=== PATIENT | female | born 1935 | race Caucasian/White ===

== ENCOUNTER 2016-10-28 12:15 | Inpatient (IN) | payer MEDICARE, OTHER ==
--- NOTE | ~2016-10-28 | CR72 ---
[facility] A Service of [facility] RADIOLOGY TEXT RESULTS PATIENT: BARBARA JAIME LOCATION: [facility] : 35 UNIT #: [id number] AGE: [address]: Alivia Johnston MD SEX: F ORDER DR: [id number] [facility] [address]. [place], [place] [address] [id number] I MR#: [id number] Acc #: [id number] NAME: BARBARA JAIME. : 1935 SEX: F STUDY DATE/TIME: 11/01/2016 11:19 UNIT: [address] ROOM: [facility] STUDY DESCRIPTION: CR Chest Single View Portable Attending Physician: Alivia Johnston M.D. Ordering Physician: Alivia Johnston M.D. Primary Care Physician: Kassy Aguayo M.D. MEDICAL IMAGING REPORT This report is preliminary unless electronic signature is present EXAM Portable chest x-ray 11/01/2016 HISTORY Short of air. TECHNIQUE Left anterior-oblique radiograph of the chest is presented. COMPARISON 10/29/2016 FINDINGS The right side chest port unchanged. Status post endovascular aortic valve repair. Heart normal in size. Evidence of prior coronary arterial stenting. The left lung is well-inflated without evidence of acute pulmonary disease. Small right pleural effusion decreased in volume from prior study. Right lung shows improved volume. There continues to be obscuration of a portion of the right lung base. Right hilar prominence stable compared to prior study. No pneumothorax. Dictated by... Benoit Farmer M.D. THIS IS AN ELECTRONICALLY VERIFIED REPORT Benoit Farmer M.D. at 11/02/2016 10:29 AM HANG/shaq TD: 11/01/2016 13:30 JOB #: [id number] MEDICAL IMAGING REPORT [facility] A Service of [facility] RADIOLOGY TEXT RESULTS PATIENT: BARBARA JAIME LOCATION: [facility] : 35 UNIT #: [id number] AGE: [address]: Alivia Johnston MD SEX: F ORDER DR: Page 1 of 1 COPY
--- NOTE | ~2016-10-28 | HP ---
Unit #: [id number] #: [id number] Patient: BARBARA JAIME [id number] [address] [place], [place] [address] [id number] I MR#: [id number] NAME: BARBARA JAIME. ROOM: 302 Age: 81 Sex: F Admission Date: 10/28/2016 : 1935 Attending Physician: Alivia Johnston M.D. Primary Care Physician: Kassy Aguayo M.D. HISTORY AND PHYSICAL CHIEF COMPLAINT Shortness of breath. HISTORY OF PRESENT ILLNESS Patient presented to the oncology office with complaint of fatigue, shortness of breath, and was found to be severely anemic in the office with a hemoglobin of 6.7, transferred to our facility for further management. I am seeing her at the bedside. She has a history of lung cancer, undergoing chemotherapy, history of COPD and malignant pleural effusion. She has been also complaining of hemorrhoids and bleeding from the hemorrhoids off and on and complaining of cough, shortness of breath. PHYSICAL EXAMINATION VITAL SIGNS: Temperature 98. Pulse 87. Respiration 12. Blood pressure 130/70. NEUROLOGICAL: Awake, alert and oriented. No neuro deficit. HEENT: PERRLA, EOMI. NECK: Supple. No JVD. CHEST: Bilateral air entry. Bilateral mild rhonchi. GI: Nontender, soft, bowel sounds positive. EXTREMITIES: No edema. DIAGNOSTIC STUDIES LABORATORY: Labs pending. IMAGING: Pending. PAST MEDICAL HISTORY COPD, respiratory failure, small cell lung cancer, depression, spinal stenosis, neuropathy, dysphagia, corneal transplant, tonsillectomy. ALLERGIES Zocor, Demerol, Levaquin, Biaxin. MEDICATION Medication as per SEP has been reviewed. ASSESSMENT 1. Severe anemia. 2. Pancytopenia. 3. Immunocompromised patient. 4. Fever. Unit #: [id number] #: [id number] Patient: BARBARA JAIME PLAN At this point plan is to draw two sets of blood culture, IV antibiotic, transfuse blood and will also consult [facility] for evaluation of her hemorrhoids and continue home medication, GI and DVT prophylaxis, broad spectrum IV antibiotic, consult Oncology. Patient will be closely monitored. Dictated by Bry Hernandez/meghana TD: 10/28/2016 22:30 JOB #: [id number] HISTORY AND PHYSICAL Page 1 of 1 X Alivia Johnston MD HISTORY AND PHYSICAL
--- NOTE | ~2016-10-28 | CO ---
Unit #: [id number] #: [id number] Patient: BARBARA JAIME [id number] [facility]. [place], [place] [address] [id number] I MR#: [id number] NAME: BARBARA JAIME. ROOM: 302 Age: 81 Sex: F Admission Date: 10/28/2016 : 1935 Attending Physician: Alivia Johnston M.D. Primary Care Physician: Kassy Aguayo M.D. Consultation Date: 11/01/2016 CONSULTATION REPORT REASON FOR CONSULTATION Nonsustained ventricular tachycardia. HISTORY OF PRESENT ILLNESS This is an 81-year-old white female, previously known to Dr. Manrique, with a past medical history of severe aortic stenosis, status post TAVR on 07/22/2016. The patient is known to have chronic respiratory failure and is on home oxygen due to COPD. She also has a history of lung cancer and is currently undergoing chemotherapy. Her last treatment was last . Additional past medical history includes hypertension, hypothyroidism, anxiety, and chronic anemia. 2D echocardiogram was completed on 08/31/2016, which revealed an ejection fraction of 70% with a trivial anterior pericardial effusion. The patient underwent a cardiac catheterization prior to the TAVR procedure on 07/07/2016 and was found to have single-vessel disease in the right coronary artery. She underwent PCI and drug-eluting stent in the proximal right coronary artery. Despite her significant medical conditions, she continues to smoke cigarettes. She presented to the hospital on 10/28/2016 with anemia and shortness of breath. She was admitted for further observation and LSA and Hematology were consulted. She was treated for acute respiratory failure and suspected pneumonia. Her platelet count has been low [place] from [address] to [address]. Her hemoglobin is currently at 8.9. She underwent an EGD, which revealed diverticulosis and benign polyp in the transverse colon. She was going to be discharged home today, but had a 7-beat run of nonsustained ventricular tachycardia. Baseline telemetry also reveals sinus tachycardia with rates in the 100s to 130s. Cardiology was consulted for further management. The patient denies chest pain. She has had some chronic shortness of breath, which is improving. There are no reports of palpitations, PND, orthopnea, or lower extremity edema. She denies dizziness or syncope. Potassium is 3.8. Magnesium is mildly low at 1.7. The patient is resting comfortably and is adamant about being discharged home this afternoon. PAST MEDICAL HISTORY 1. Severe aortic stenosis, status post TAVR on 07/22/2016. 2. Single-vessel coronary artery disease, status post PCI and drug-eluting stent in the proximal right coronary artery on 07/07/2016. 3. 2D echocardiogram on 08/31/2016 revealed mild LVH. Ejection fraction 70%. Trivial anterior pericardial effusion. 4. Chronic respiratory failure on home oxygen. 5. COPD. 6. Lung cancer, currently undergoing chemotherapy. 7. Hypertension. Unit #: [id number] #: [id number] Patient: BARBARA JAIME 8. Hypothyroidism. 9. Anxiety. 10. Chronic anemia. 11. Documented allergy to statin. 12. Active tobacco abuse. PAST SURGICAL HISTORY 1. Cardiac catheterization. 2. TAVR. HOME MEDICATIONS Dexamethasone 4 mg p.o. daily, Dermacort 1 g topical daily as needed for itching, Zofran 8 mg p.o. q.4 hours p.r.n. for nausea, Phenergan 25 mg p.o. q.6 as needed for cough, Ativan 0.5 mg p.o. at bedtime as needed for anxiety, metoprolol tartrate 25 mg p.o. b.i.d., Lasix 20 mg p.o. b.i.d., oxycodone 7.5/325 mg one tablet p.o. q.4 hours p.r.n. for pain, Plavix 75 mg p.o. daily, potassium chloride 20 mEq p.o. b.i.d., levothyroxine 75 mcg p.o. daily. ALLERGIES Simvastatin, meperidine, Levaquin. SOCIAL HISTORY The patient lives in a private residence. She continues to actively smoke 5 to 6 cigarettes per day. There are no reports of alcohol or illicit drug use. FAMILY HISTORY Noncontributory. REVIEW OF SYSTEMS Ten-point review of systems negative except for details noted above in HPI. PHYSICAL EXAMINATION VITAL SIGNS: Temperature 98.6, pulse 94, blood pressure 134/68. Previous blood pressure 89/64. CONSTITUTIONAL: This is an 81-year-old white female, in no acute distress. SKIN: Warm and dry. NECK: Supple. No jugular vein distention. No hepatojugular reflux. Normal carotid upstrokes. No carotid bruits auscultated. HEART: S1 and S2. Regular rate and rhythm, but tachycardic. No murmurs, rubs, or gallops. LUNGS: Bilateral breath sounds have occasional wheezes. Respirations even and nonlabored. No rales or rhonchi. ABDOMEN: Soft, nontender, and nondistended. Positive bowel sounds auscultated x4 quadrants. No ascites noted. EXTREMITIES: Bilateral lower extremities have no pretibial pitting edema. DP and PT pulses are 2+. Capillary refill is less than 2 seconds. DIAGNOSTIC STUDIES LABORATORY RESULTS: White blood cell count 8.6, hemoglobin 8.9, hematocrit 27.2, platelets 53. Sodium 138, potassium 3.8, chloride 100, CO2 of 29, BUN 18, creatinine 1.0, glucose 94. Magnesium 1.7, albumin 2.7, protein 5.3. IMAGING STUDIES: X-ray reveals volume loss in the right hemothorax with small right pleural effusion and questionably loculated. Unit #: [id number] #: [id number] Patient: BARBARA JAIME CARDIOVASCULAR STUDIES: Telemetry reveals sinus tachycardia with rates in the 100s to 130s. 7-beat run of nonsustained ventricular tachycardia. EKG pending. IMPRESSION 1. Anemia, status post esophagogastroduodenoscopy and colonoscopy with colon polyp and diverticulosis. 2. Acute exacerbation of chronic obstructive pulmonary disease. 3. Nonsustained ventricular tachycardia. 4. Borderline hypotension. 5. Left ventricular ejection fraction 70%. 6. History of severe aortic stenosis, status post transcatheter aortic-valve replacement on 07/22/2016. 7. History of coronary artery disease, status post percutaneous coronary intervention and drug-eluting stent in the proximal right coronary artery on 07/07/2016. 8. Hypothyroidism. 9. Anemia. 10. Thrombocytopenia. 11. Active tobacco abuse. PLAN 1. The patient presented to the hospital due to anemia and shortness of breath. She underwent a scope which revealed no acute findings. 2. Hematology was consulted for anemia and low platelets. 3. Cardiology was consulted due to nonsustained ventricular tachycardia. The patient is asymptomatic and is adamant about being discharged. 4. Magnesium is mildly low, will be supplemented. 5. TSH and free T4 level will be obtained. 6. Metoprolol will be adjusted due to recent hypotension. 7. There is no evidence of congestive heart failure on exam. We will decrease Lasix. 8. The patient has been instructed to follow up with Dr. Manrique on 01/13/2017 at 3:00 p.m. 9. She will need to be continued on dual antiplatelet therapy with aspirin and Plavix for a minimum of 12 months due to recent drug-eluting stent. 10. She has been advised to refrain from tobacco abuse. Dictated by... Terese Singh APRN TR/zoey TD: 11/04/2016 23:07 JOB #: [id number] Unit #: [id number] #: [id number] Patient: BARBARA JAIME CONSULTATION REPORT Page 1 of 1 X X CONSULTATION REPORT
--- NOTE | ~2016-10-28 | DS ---
Unit #: [id number] #: [id number] Patient: BARBARA JAIME [id number] [address] [address] [id number] I MR#: [id number] NAME: BARBARA JAIME. ROOM: 302 Age: 81 Sex: F Admission Date: 10/28/2016 : 1935 Discharge Date: 11/01/2016 Attending Physician: Alivia Johnston M.D. Primary Care Physician: Kassy Aguayo M.D. DISCHARGE SUMMARY ADMITTING DIAGNOSES 1. Shortness of breath. 2. Acute on chronic anemia. 3. Pancytopenia. 4. Immunocompromised patient. 5. Chronic obstructive pulmonary disease. 6. Nocturnal hypoxia. 7. Small-cell lung cancer. 8. Depression. 9. Neuropathy. 10. Spinal stenosis. 11. Hypothyroidism. DISCHARGE DIAGNOSES 1. Ratfi-tf-xrokoaz hypoxic respiratory failure. 2. Small-cell lung cancer. 3. Dvluu-zp-odqctgz anemia. 4. Pancytopenia. 5. Chronic obstructive pulmonary disease. 6. Spinal stenosis. 7. Depression. 8. Neuropathy. 9. Dysphagia. 10. Hypothyroidism. 11. Nicotine abuse. 12. Pneumonia, gram negative. CONSULTANTS 1. Dr. Manrique with cardiology. 2. Dr. Lewis with surgery. 3. Dr. Vieira with oncology. DISCHARGE MEDICATIONS 1. Omnicef 300 mg p.o. b.i.d. for 7 days. 2. Combivent p.r.n. 3. Lopressor 25 mg p.o. b.i.d. 4. Lasix 20 mg p.o. b.i.d. 5. Plavix 75 mg p.o. daily. However, cardiology is assessing the need for this medication at the time of discharge, so this may change. 6. K-Dur 20 mEq p.o. daily. 7. Percocet 7.5/325 mg p.o. q.4 h. p.r.n. 8. Dexamethasone 4 mg p.o. daily. 9. Zofran 8 mg q.8 h. p.r.n. 10. Phenergan 25 mg q.6 h. p.r.n. Unit #: [id number] #: [id number] Patient: BARBARA JAIME 11. Ativan 0.5 mg p.o. at bedtime p.r.n. DISCHARGE CONDITION Stable overall. However, her heart rate is noted to be between 110 and 120 with 1 run of V-tac for 6 beats. The patient is advised to stay another night to be watched and evaluated by cardiology, but is so persistent about going home. She stated that she has a handicapped daughter and she is so worried about her. Cardiology is evaluating the patient at the time of discharge to clear the patient for going home. If they decide to keep the patient another day an addendum will be added to this discharge. BRIEF HOSPITAL COURSE This is a very pleasant 81-year-old female with a past medical history significant for small-cell lung cancer. She presented to the hospital from her oncologist's office for evaluation of severe anemia. The patient was noted also to have a loculated malignant pleural effusion with pneumonia. She was started on Maxipime and she was afebrile throughout her stay. The patient underwent an EGD, colonoscopy to the cecum, which was normal except for some moderate diverticulosis and a small benign-appearing polyp at the transverse colon. Her hemoglobin was stable throughout her stay. Her platelets also were stable, but her Plavix was on hold. This needs to be reevaluated by cardiology. The patient was on Maxipime and she will be discharged on Omnicef for seven days. The patient again was noted on the day of discharge to have a heart rate between 110 to 120 and she had a run of V-tac for 6 beats. Her potassium is 3.8 and her magnesium is pending at the time of discharge. The patient was extensively counseled and advised to stay another day for evaluation. However, she is adamant about going home because she has a handicapped daughter. Cardiology is consulted to clear this patient at the time of dictation and this discharge date may need to be adjusted if the patient stays overnight. Time spent on discharge was 35 minutes. Dictated by... Byr Jordan TD: 11/01/2016 09:26 JOB #: [id number] DISCHARGE SUMMARY Page 1 of 1 X GASTON CRAIN MD DISCHARGE SUMMARY
--- NOTE | ~2016-10-28 | CO ---
Unit #: [id number] #: [id number] Patient: BARBARA JAIME [id number] [address] [place], [place] [address] [id number] I MR#: [id number] NAME: BARBARA JAIME ROOM: 302 Age: 81 Sex: F Admission Date: 10/28/2016 : 1935 Attending Physician: Alivia Johnston M.D. Primary Care Physician: Kassy Aguayo M.D. Consultation Date: 10/29/2016 CONSULTATION REPORT BRIEF HISTORY The patient is an 81-year-old lady who presents to the Oncology office and found to be severely anemic with a hemoglobin of 6.7. She has intermittent bright red blood per rectum. She has also had a history of hemorrhoids per her personal history. She has had no recent endoscopy. She is being treated with chemotherapy for lung cancer. PAST MEDICAL HISTORY COPD, respiratory therapy, small-cell cancer, spinal stenosis, neuropathy, dysphagia. SOCIAL HISTORY No current smoking. No alcohol. ALLERGIES Zocor, Demerol, Levaquin, Biaxin. PHYSICAL EXAMINATION GENERAL APPEARANCE: She is awake, alert, appropriate, currently afebrile. HEENT: Unremarkable. NECK: Supple. No JVD. Trachea midline. LUNGS: Clear to auscultation. Bilateral breath sounds symmetric. CARDIOVASCULAR: Regular rate and rhythm. ABDOMEN: Soft, nontender, nondistended. I palpate no mass. No hepatosplenomegaly. EXTREMITIES: No clubbing, cyanosis or edema. RECTAL: No external hemorrhoids. She is tender to exam, probable posterior fissure. DIAGNOSTIC STUDIES LABORATORY: Hemoglobin 6.7, platelet count 47. ASSESSMENT AND PLAN Severe anemia with a history of rectal bleed. PLAN I recommend upper and lower endoscopies and she has not had any evaluation here recently. Depending on finding, we would then treat with local care for fissure or internal hemorrhoid if indicated. Dictated by... Benoit Clifford M.D. Unit #: [id number] #: [id number] Patient: BARBARA JAIME ANNA/rufino TD: 10/29/2016 09:44 JOB #: [id number] CONSULTATION REPORT Page 1 of 1 X Benoit Clifford MD CONSULTATION REPORT
--- NOTE | ~2016-10-28 | CR63 ---
[facility] A Service of [facility] RADIOLOGY TEXT RESULTS PATIENT: BARBARA JAIME LOCATION: [facility] 302- : 35 UNIT #: [id number] AGE: [address]: Alivia Johnston MD SEX: F ORDER DR: [id number] [facility] [address] [place], [place] [address] [id number] I MR#: [id number] Acc #: [id number] NAME: BARBARA JAIME. : 1935 SEX: F STUDY DATE/TIME: 10/29/2016 1328 UNIT: [address] ROOM: [facility] STUDY DESCRIPTION: CR Chest 2 View Attending Physician: Alivia Johnston M.D. Ordering Physician: Alivia Johnston M.D. Primary Care Physician: Kassy Aguayo M.D. MEDICAL IMAGING REPORT This report is preliminary unless electronic signature is present EXAM Chest, 2 views, 10/29/2016, 1328 hours. CLINICAL HISTORY 81-year-old with a history of shortness of air, cough and anemia since 10/28/2016. History of right-sided small cell lung cancer. COMPARISON 09/23/2016 FINDINGS Upright PA and lateral views of the chest demonstrate right central venous catheter with tip in the right atrium. There is an ascending aortic graft present. Heart size is normal. Left lung is well expanded and clear. There is decrease in right perihilar soft tissue mass but there is increase in right pleural fluid and right basilar atelectasis. There is hazy density in the lateral mid-right hemithorax which could represent fluid in the fissure. Loculated fluid laterally is also a possibility. IMPRESSION 1. Right central venous port catheter tip in the right atrium. 2. Volume loss in the right hemithorax with increased right pleural effusion at the right lung base and likely either loculated in the lateral upper hemithorax or within the fissure. The right perihilar soft tissue density has significantly reduced or resolved. The left lung remains clear. Dictated by... Chelly Walton M.D. THIS IS AN ELECTRONICALLY VERIFIED REPORT [facility] A Service of [facility] & [facility] RADIOLOGY TEXT RESULTS PATIENT: BARBARA JAIME LOCATION: [facility] 302-01 : 35 UNIT #: [id number] AGE: [address]: Alivia Johnston MD SEX: F ORDER DR: Chelly Walton M.D. at 11/01/2016 9:26 AM MAGALI/jaleel TD: 10/29/2016 15:59 JOB #: [id number] MEDICAL IMAGING REPORT Page 1 of 1 COPY
--- NOTE | ~2016-10-28 | OR ---
Unit #: [id number] #: [id number] Patient: BARBARA JAIME [id number] [address] [place], [place] [address] [id number] Giulia MR#: [id number] NAME: BARBARA JAIME. ROOM: 302 Date of Procedure: 10/30/2016 Admission Date: 10/28/2016 Surgeon: Lew Lewis III, M.D. : 1935 Attending Physician: Alivia Johnston M.D. Primary Care Physician: Kassy Aguayo M.D. OPERATIVE REPORT PREOPERATIVE DIAGNOSIS Anemia. POSTOPERATIVE DIAGNOSES Normal esophagogastroduodenoscopy and moderate diverticulosis and a small benign-appearing polyp at the transverse colon. PROCEDURES PERFORMED Esophagogastroduodenoscopy and colonoscopy to cecum. ANESTHESIA 8 mg of Versed and 50 mcg of fentanyl. SPECIMENS None (biopsies not taken due to thrombocytopenia). INDICATIONS FOR PROCEDURE This is an 81-year-old lady, who has multiple medical problems including a diagnosis of small cell lung cancer. She was diagnosed with anemia with a hemoglobin of 6.5 and has been on steroids as well as chemotherapy. She is here today for upper and lower endoscopy. DESCRIPTION OF PROCEDURE After consent was obtained, the patient was brought to the endoscopy suite and placed in the left lateral decubitus position. We titrated the above sedation. I passed an EGD scope easily into the esophagus under direct visualization. She had normal peristalsis. No evidence of any erosions or esophagitis. There was no hiatal hernia. The rest of the stomach appeared normal with no ulceration or masses or gastritis. The pylorus was patent, and the first and second portions of duodenum appeared normal. I then retroflexed the scope within the cardia and did not see any other abnormalities. The scope was then carefully withdrawn. I then performed a rectal exam, did not feel any masses. The scope was placed within the rectal vault. Air was insufflated. She had an extremely tortuous sigmoid colon and I was gently able to get the scope through there after multiple attempts. She had moderate sigmoid diverticulosis and I advanced the scope all the way to the cecum. Upon withdrawal of the scope, mucosa appeared normal. She did have one tiny/small-appearing benign-appearing polyp. This was not biopsied because she had thrombocytopenia. There were no signs of any recent or active bleeding. The scope was then retroflexed within the rectum. No other masses were seen. The scope was then carefully withdrawn. The patient tolerated the procedure without any Unit #: [id number] #: [id number] Patient: BARBARA JAIME and returned to the recovery room in stable condition. Dictated by... Lew Lewis III, M.D. VCL/zoey TD: 10/30/2016 19:21 JOB #: [id number] OPERATIVE REPORT Page 1 of 1 X Lew Lewis III, MD PROCEDURE OPERATIVE NOTE
[~2016-10-28 12:15] MED LIST: ACETAMINOPHEN PO; ALBUTEROL 0.5ML INH; ALBUTEROL17 GM INH; ALPRAZOLAM PO; ANTIVERT PO; ASPIRIN EC81 M1 PO; ASPIRIN PO; ASPIRIN325 M1 PO; ASPIRIN81 M1 PO; ATARAX PO; CALCIUM + D 6001 TA1 PO; CALCIUM + D PO; CALCIUM 1200 MG; CALCIUM 500 + D1 TAB PO; CALCIUM1 TAB.CHEW PO; CALCIUM500 MG PO; CENTRUM PO; CERTAGEN PO; CHEWABLE ASPIRI81 MG PO; CIPRO PO; CLOTRIMAZOLE10 MG MM; DUREZOL5 ML OP; ECOTRIN81 M1 PO; EFFEXOR PO; EFFEXOR XR75 MG PO; EFFEXOR37.5 MG PO; EFFEXOR75 M1 PO; EFFEXOR75 M2 PO; EFFEXOR75 MG PO; FISH OIL 1,0001 CAP PO; FLEXERIL10 MG PO; FLONASE 0.05% N16 G1; GUAIFENESIN1200 M1 PO; GUAIFENESIN600 MG PO; HAIR, SKIN & N1 EAC1 PO; KEFLEX500 M1 PO; LEVAQUIN PO; LORTAB 5-325 M1 EACH PO; LORTAB 7.51 TAB 7.5/; MECLIZINE HCL12.5 MG PO; MOTRIN400 MG PO; MUCINEX D ER T1 EACH PO; MULTI VITAMIN1 EACH PO; MULTIVITAMIN1 UDCAP PO; NORCO1 TAB 10/3 PO; NYSTATIN5 ML PO; OMEGA 3-6-9 11200 MG PO; OMEPRAZOLE40 MG PO; OMNICEF PO; PANTOPRAZOLE SO40 MG PO; PHENERGAN12.5 MG PO; PRAVACHOL PO; PRAVACHOL20 MG PO; PRED MILD5 ML OU; PREDNISONE PO; PREDNISONE10 MG PO; PRILOSEC20 MG PO; PROTONIX PO; SALINE60 M1; SIMVASTATIN40 MG PO; SYMBICORT INH; TYLENOL325 M1 PO; UNKNOWN PAIN MED PO; VICODIN 5/500 T1 TAB PO; VISTARIL25 MG/5 ML PO; VITAMIN C PO; VITAMIN C500 M1 PO; VITAMIN D 4001 UDTAB PO; VITAMIN D PO; VITAMIN D1000 UNIT PO; VITAMIN D400 UNI1 PO; VITAMIN D400 UNI2 PO; ZANTAC PO; ZITHROMAX PO; ZOCOR PO; ZOFRAN PO; ZYRTEC10 M1 PO
[2016-10-28] MEDS ORDERED: LASIX20 MG PO (15:41)
[2016-10-28] MEDS ORDERED: LOPRESSOR PO (15:46)
[2016-10-28 16:52] LABS: HEMATOCRIT 20.1 % (35.0-45.0); MEAN CELL VOLUME 92.7 FL (83-96); MEAN CORPUSCULAR HEMOGLOBIN 30.8 PG (28-34); MEAN CORPUSCULAR HGB CONC 33.2 g/dL (30-36); MEAN PLATELET VOLUME 7.8 FL (6.5-11.5); RED BLOOD COUNT 2.17 X10e (3.90-5.30); RED CELL DISTRIBUTION WIDTH 15.3 % (11.0-15.5); WHITE BLOOD COUNT 3.4 X10e3 (4.0-10.5)
[2016-10-28 17:19] LABS: HEMOGLOBIN 6.7 gm/dL (12.0-16.0)
[2016-10-28 17:23] LABS: BUN/CREATININE RATIO 23.33; CALCIUM SERUM 8.9 mg/dL (8.4-10.2); CREATININE SERUM 0.9 mg/dL (0.6-1.4); POTASSIUM 3.9 mmol/L (3.5-5.1)
[2016-10-29 14:33] LABS: HEMATOCRIT 27.9 % (35.0-45.0); MEAN CELL VOLUME 90.9 FL (83-96); MEAN PLATELET VOLUME 7.8 FL (6.5-11.5); RED BLOOD COUNT 3.07 X10e (3.90-5.30); RED CELL DISTRIBUTION WIDTH 16.4 % (11.0-15.5); WHITE BLOOD COUNT 4.8 X10e3 (4.0-10.5)
[2016-10-29 14:49] LABS: HEMOGLOBIN 9.2 gm/dL (12.0-16.0)
[2016-10-29 14:52] LABS: ALBUMIN SERUM 3.1 g/dL (3.5-5.0); BILIRUBIN,TOTAL 0.8 mg/dL (0.2-2.0); BUN/CREATININE RATIO 23.33; CALCIUM SERUM 8.3 mg/dL (8.4-10.2); CREATININE SERUM 0.9 mg/dL (0.6-1.4); POTASSIUM 4.4 mmol/L (3.5-5.1); PROTEIN TOTAL SERUM 6.3 g/dL (6.0-8.3)
[2016-10-30 06:17] LABS: HEMATOCRIT 26.7 % (35.0-45.0); HEMOGLOBIN 8.9 gm/dL (12.0-16.0); MEAN CELL VOLUME 90.4 FL (83-96); MEAN CORPUSCULAR HEMOGLOBIN 30.1 PG (28-34); MEAN CORPUSCULAR HGB CONC 33.3 g/dL (30-36); RED BLOOD COUNT 2.95 X10e (3.90-5.30); RED CELL DISTRIBUTION WIDTH 16.9 % (11.0-15.5); WHITE BLOOD COUNT 6.1 X10e3 (4.0-10.5)
[2016-10-30 06:47] LABS: ALBUMIN SERUM 2.9 g/dL (3.5-5.0); BILIRUBIN,TOTAL 0.4 mg/dL (0.2-2.0); BUN/CREATININE RATIO 22.22; CALCIUM SERUM 8.1 mg/dL (8.4-10.2); CREATININE SERUM 0.9 mg/dL (0.6-1.4); POTASSIUM 3.7 mmol/L (3.5-5.1); PROTEIN TOTAL SERUM 5.4 g/dL (6.0-8.3)
[2016-10-31 05:29] LABS: HEMATOCRIT 27.5 % (35.0-45.0); HEMOGLOBIN 9.1 gm/dL (12.0-16.0); MEAN CELL VOLUME 91.3 FL (83-96); MEAN CORPUSCULAR HEMOGLOBIN 30.1 PG (28-34); MEAN PLATELET VOLUME 9.1 FL (6.5-11.5); RED BLOOD COUNT 3.01 X10e (3.90-5.30); RED CELL DISTRIBUTION WIDTH 16.5 % (11.0-15.5)
[2016-10-31 06:22] LABS: ALBUMIN SERUM 2.8 g/dL (3.5-5.0); BILIRUBIN,TOTAL 0.5 mg/dL (0.2-2.0); CALCIUM SERUM 8.3 mg/dL (8.4-10.2); CREATININE SERUM 0.9 mg/dL (0.6-1.4); POTASSIUM 3.6 mmol/L (3.5-5.1); PROTEIN TOTAL SERUM 5.4 g/dL (6.0-8.3)
[2016-11-01 05:43] LABS: HEMATOCRIT 27.2 % (35.0-45.0); HEMOGLOBIN 8.9 gm/dL (12.0-16.0); MEAN CELL VOLUME 91.9 FL (83-96); MEAN CORPUSCULAR HEMOGLOBIN 30.1 PG (28-34); MEAN CORPUSCULAR HGB CONC 32.8 g/dL (30-36); MEAN PLATELET VOLUME 8.6 FL (6.5-11.5); RED BLOOD COUNT 2.96 X10e (3.90-5.30); RED CELL DISTRIBUTION WIDTH 16.5 % (11.0-15.5); WHITE BLOOD COUNT 8.6 X10e3 (4.0-10.5)
[2016-11-01 06:36] LABS: ALBUMIN SERUM 2.7 g/dL (3.5-5.0); BILIRUBIN,TOTAL 0.7 mg/dL (0.2-2.0); CALCIUM SERUM 8.3 mg/dL (8.4-10.2); GLOM FILT RATE Estimated 52.8 mL/min (>60); POTASSIUM 3.8 mmol/L (3.5-5.1); PROTEIN TOTAL SERUM 5.3 g/dL (6.0-8.3)
[2016-11-01 11:42] LABS: FREE THYROXIN (T4) 1.05 ng/dL (0.58-1.64)
[2016-12-17] MEDS ORDERED: OMNICEF300 MG PO (12:12)
[2016-12-17] MEDS ORDERED: LOPRESSOR PO (12:16)
[2016-12-17] MEDS ORDERED: LASIX20 MG PO (12:16)
[2016-12-17] MEDS ORDERED: DEXAMETHASONE4 MG PO (15:41)
[2016-12-17] MEDS ORDERED: K-DUR20 ME1 PO (15:42)
[2016-12-17] MEDS ORDERED: CLOPIDOGREL75 MG PO (15:42)
[2016-12-17] MEDS ORDERED: DERMACORT1 GM EXT (15:43)
[2016-12-17] MEDS ORDERED: PERCOCET7.5 PO (15:45)
[2016-12-17] MEDS ORDERED: PHENERGAN PO (15:45)
[2016-12-17] MEDS ORDERED: UNITHROID25 MCG PO (15:47)
[2016-12-17] MEDS ORDERED: ZOFRAN8 MG PO (15:48)
[2016-12-17] MEDS ORDERED: ATIVAN0.5 MG PO (19:52)
== END 2016-11-01 13:10 | disposition home or self-care (01) | DRG 811 ==
LOC: C3A PCU 12:15
PROVIDERS: Internal Medicine; Surgery
PROC: 30233N0 Transfusion of Autologous Red Blood Cells into Peripheral Vein, Percutaneous Approach (ICD-10-PCS; 2016-10-29)
PROC: 0DJD8ZZ Inspection of Lower Intestinal Tract, Via Natural or Artificial Opening Endoscopic (ICD-10-PCS; 2016-10-30)
PROC: 0DJ08ZZ Inspection of Upper Intestinal Tract, Via Natural or Artificial Opening Endoscopic (ICD-10-PCS; principal; 2016-10-30 08:30)
DX: D64.9 Anemia, unspecified (principal); J15.6 Pneumonia due to other Gram-negative bacteria; J96.21 Acute and chronic respiratory failure with hypoxia; J91.0 Malignant pleural effusion; I47.2 Ventricular tachycardia; J44.0 Chronic obstructive pulmonary disease with (acute) lower respiratory infection; I95.9 Hypotension, unspecified; C34.90 Malignant neoplasm of unspecified part of unspecified bronchus or lung; G62.9 Polyneuropathy, unspecified; R13.10 Dysphagia, unspecified; F32.9 Major depressive disorder, single episode, unspecified; M48.00 Spinal stenosis, site unspecified; E03.9 Hypothyroidism, unspecified; F17.210 Nicotine dependence, cigarettes, uncomplicated; D61.818 Other pancytopenia; Z94.7 Corneal transplant status; K57.90 Diverticulosis of intestine, part unspecified, without perforation or abscess without bleeding; D12.5 Benign neoplasm of sigmoid colon; D61.810 Antineoplastic chemotherapy induced pancytopenia
CPT/HCPCS: 71010; 71020; 80048; 80053; 83735; 84439; 84443; 85027; 86850; 86900; 86901; 86923; 94640; 94760; C9113; J0692; J1447; J2175; J2250; J3010; P9016

== ENCOUNTER → 2016-12-16 | Outpatient (CLI) | payer MEDICARE, OTHER ==
[~2016-12-16] MED LIST changes: +ATIVAN0.5 MG PO; +CLOPIDOGREL75 MG PO; +DERMACORT1 GM EXT; +DEXAMETHASONE4 MG PO; +K-DUR20 ME1 PO; +LASIX20 MG PO; +LOPRESSOR PO; +OMNICEF300 MG PO; +PERCOCET7.5 PO; +PHENERGAN PO; +UNITHROID25 MCG PO; +ZOFRAN8 MG PO
== END | disposition home or self-care (01) ==
LOC: CLAB 13:49
DX: D64.9 Anemia, unspecified (principal); Z85.118 Personal history of other malignant neoplasm of bronchus and lung
CPT/HCPCS: 36415; 86850; 86900; 86901; 86923

== ENCOUNTER → 2016-12-17 | Outpatient (CLI) | payer MEDICARE, OTHER | END | disposition home or self-care (01) | LOC: CSSDAY 08:00 | DX: D64.9 Anemia, unspecified (principal); C34.90 Malignant neoplasm of unspecified part of unspecified bronchus or lung | CPT/HCPCS: 36430; J1200; J1642; J1940; P9016 ==